=== PATIENT | female | born 1985 | race Caucasian/White ===

== ENCOUNTER 2018-01-29 14:05 | Emergency (ER) | payer OTHER ==
[~2018-01-29] VITALS: Ht 172.7 cm; Wt 72.6 kg
[2018-01-29] MEDS ORDERED: VALIUM5 MG PO (16:08)
[2018-01-29] MEDS ORDERED: MOBIC15 MG PO (16:08)
[2018-01-29] MEDS ORDERED: NORCO 5-325 TA1 EACH PO (16:08)
[2018-01-29 16:15] VITALS: BP 137/63
== END 2018-01-29 16:29 | disposition home or self-care (01) ==
LOC: ER 14:05
DX: S39.012A Strain of muscle, fascia and tendon of lower back, initial encounter (principal); M54.16 Radiculopathy, lumbar region; Z88.0 Allergy status to penicillin; Z88.2 Allergy status to sulfonamides; Z88.1 Allergy status to other antibiotic agents; Z90.49 Acquired absence of other specified parts of digestive tract; W22.8XXA Striking against or struck by other objects, initial encounter; Y93.89 Activity, other specified; Y92.89 Other specified places as the place of occurrence of the external cause; Y99.8 Other external cause status